=== PATIENT | male | born 1950 | race American Indian/Alaskan Native ===

== ENCOUNTER 2018-09-09 11:30 | Emergency (ER) | payer SELFPAY ==
[2018-09-09 11:33] VITALS: RESP 18; O2SAT 100
[2018-09-09 12:46] LABS: BASO # 0.1 K/uL (0.0-0.2); BASO % 0.7 % (0.0-2.0); EOS % 0.2 % (0.0-4.0); HEMOGLOBIN 13.5 g/dL (12.0-18.0); LYMPH # 2.3 K/uL (1.0-4.3); LYMPH % 17.6 % (20.0-40.0); MEAN CELL VOLUME 82.1 fL (80.0-94.0); MEAN CORPUSCULAR HEMOGLOBIN 26.4 pg (27.0-31.0); MEAN CORPUSCULAR HGB CONC 32.1 g/dL (33.0-37.0); MEAN PLATELET VOLUME 8.6 fL (7.2-11.7); MONO # 1.4 K/uL (0.0-0.8); MONO % 10.6 % (0.0-10.0); NEUT # 9.3 K/uL (1.8-7.0); NEUT % 70.9 % (50.0-75.0); RBC 5.11 Mil/uL (4.40-5.90); RED CELL DISTRIBUTION WIDTH 13.7 % (11.5-14.5); WHITE BLOOD COUNT 13.1 K/uL (4.8-10.8)
[2018-09-09 13:01] LABS: ALBUMIN 4.4 g/dL (3.5-5.0); ALT/SGPT 17 U/L (21-72); AST/SGOT 39 U/L (17-59); BLOOD UREA NITROGEN 18 mg/dL (9-20); CALCIUM 9.7 mg/dl (8.6-10.4); GFR NON-AFRICAN AMERICAN > 60
--- NOTE | 2018-09-09 13:56 | C.PDOC ---
History Of Present Illness 68 year old male is brought to the ED by son for evaluation of dizziness, decreased appetite, nausea and increased urinary urgency which began a couple days ago. Patient states his dizziness lasts for a few minutes and then self-resolves. Son states that patient has been visiting from [place], and is staying here for a couple months. Patient reports feeling acid reflux, and found relief after taking some [place]. Patient states he is asymptomatic at this time and denies fever, chills, abdominal pain, vomiting, recent trauma/falls. Time Seen by Provider: 09/09/18 12:00 Chief Complaint (Nursing): Dizziness/Lightheaded History Per: Patient, Family (son ) History/Exam Limitations: no limitations Current Symptoms Are (Timing): Gone Past Medical History Reviewed: Historical Data, Nursing Documentation, Vital Signs Vital Signs: Last Vital Signs Temp 99.2 F 09/09/18 11:32 Pulse 116 H 09/09/18 11:32 Resp 18 09/09/18 11:32 BP 182/104 H 09/09/18 11:32 Pulse Ox 100 09/09/18 11:32 - Medical History PMH: No Chronic Diseases Surgical History: No Surg Hx Family History: States: Unknown Family Hx - Social History Hx Alcohol Use: No Hx Substance Use: No - Immunization History Hx Tetanus Toxoid Vaccination: No Hx Influenza Vaccination: No Hx Pneumococcal Vaccination: No Review Of Systems Constitutional: Positive for: Other (decreased appetite ). Negative for: Fever, Chills Gastrointestinal: Positive for: Nausea. Negative for: Vomiting, Abdominal Pain Genitourinary: Positive for: Other (urinary urgency ) Neurological: Positive for: Dizziness Physical Exam - Physical Exam Appears: Well, Non-toxic, No Acute Distress Skin: Normal Color, Warm, Dry, No Rash Head: Atraumatic, Normacephalic Eye(s): bilateral: PERRL, EOMI Oral Mucosa: Moist Neck: Supple Chest: Symmetrical, No Deformity, No Tenderness Cardiovascular: Rhythm Regular, No Murmur Respiratory: Normal Breath Sounds, No Rales, No Rhonchi, No Wheezing Gastrointestinal/Abdominal: Soft, No Tenderness, No Guarding, No Rebound Back: Normal Inspection, No CVA Tenderness Extremity: Normal ROM, Capillary Refill (less than 2 seconds ), No Swelling Neurological/Psych: Oriented x3, Normal Speech, Normal Cognition Gait: Steady ED Course And Treatment - Laboratory Results Result Diagrams: 09/09/18 12:43 09/09/18 12:43 Lab Results: Total Bilirubin 0.5 mg/dL (0.2-1.3) 09/09/18 12:43 AST 39 U/L (17-59) 09/09/18 12:43 ALT 17 U/L (21-72) L 09/09/18 12:43 Alkaline Phosphatase 87 U/L (38-126) 09/09/18 12:43 Total Protein 9.1 g/dL (6.3-8.3) H 09/09/18 12:43 Albumin 4.4 g/dL (3.5-5.0) 09/09/18 12:43 Globulin 4.6 gm/dL (2.2-3.9) H 09/09/18 12:43 Albumin/Globulin Ratio 1.0 (1.0-2.1) 09/09/18 12:43 O2 Sat by Pulse Oximetry: 100 (on RA) Pulse Ox Interpretation: Normal Medical Decision Making Medical Decision Making: Progress: Bloodwork, urinalysis, CXR, EKG ordered and reviewed. Ciprofloxacin PO given. Patient was instructed that his BP was elevated and that he needs to be placed on medications for that. UA (+) for UTI. On re-exam, the patient reports improvement of symptoms. Lungs are CTA, heart is RRR, abdomen is soft, non-tender and tolerating Po well. Follow up with the medical doctor within 1-2 days. Return if worsened. Disposition - Disposition Disposition: HOME/ ROUTINE Disposition Time: 15:00 Condition: GOOD Additional Instructions: Follow up with the medical doctor within 1-2 days. Return if worsened. Prescriptions: Ciprofloxacin [Cipro] 1 tab PO BID #14 tab Meclizine HCl 25 mg PO TID PRN #25 tablet PRN Reason: Dizziness Tamsulosin [Flomax] 0.4 mg PO DAILY #10 cap Instructions: Urinary Tract Infections in Adults, Vertigo (a Type of Dizziness) (DC) Forms: [employer] (Maltese) - Clinical Impression Clinical Impression: UTI (urinary tract infection), Hypertension - PA / PRETZEL TWISTER / Resident Statement MD/DO has reviewed & agrees with the documentation as recorded. - Scribe Statement The provider has reviewed the documentation as recorded by the Scribe (Mariya Garcia) All medical record entries made by the Esequiel were at my direction and p ersonally dictated by me. I have reviewed the chart and agree that the record accurately reflects my personal performance of the history, physical exam, medical decision making, and the department course for this patient. I have also personally directed, reviewed, and agree with the discharge instructions and disposition.
[2018-09-09 14:02] LABS: SQUAMOUS EPITHIAL 1 /hpf (0-5); URINE BACTERIA MANY (<OCC); URINE BILIRUBIN NEGATIVE (NEGATIVE); URINE BLOOD 3+ (NEGATIVE); URINE CLARITY Turbid (Clear); URINE COLOR Amber (YELLOW); URINE GLUCOSE (UA) NORMAL (Normal); URINE LEUKOCYTE ESTERASE 3+ Leu/uL (Negative); URINE PROTEIN 1+ mg/dL (NEGATIVE); URINE UROBILINOGEN NORMAL mg/dL (0.2-1.0); WBC CLUMPS FEW /hpf
[2018-09-09 14:36] VITALS: BP 175/102; PULSE 108; TEMP 99.6
--- NOTE | 2018-09-09 14:36 | RAD ---
Date of service: 09/09/2018 HISTORY: Dizziness COMPARISON: No prior. FINDINGS: LUNGS: The lungs are well inflated and clear. PLEURA: No pleural effusions or pneumothorax. CARDIOVASCULAR: The heart is normal in size. No aortic atherosclerotic calcifications present. OSSEOUS STRUCTURES: Within normal limits for the patient's age. VISUALIZED UPPER ABDOMEN: Normal. OTHER FINDINGS: None. IMPRESSION: No active pulmonary disease.
--- NOTE | 2018-09-10 16:40 | CARD ---
APPROVED REPORT Date of service: 09/09/2018 EKG Measurement Heart [id number] <Conclusion> Sinus tachycardia Right bundle branch block Left anterior fascicular block Bifascicular block Septal infarct, age undetermined Abnormal ECG
== END 2018-09-09 14:56 | disposition home or self-care (01) ==
LOC: C.ER 11:30
DX: N39.0 Urinary tract infection, site not specified (principal); I10 Essential (primary) hypertension

== ENCOUNTER 2018-10-14 14:37 | Emergency (ER) | payer SELFPAY ==
[2018-10-14 15:38] LABS: BASO # 0.1 K/uL (0.0-0.2); BASO % 0.8 % (0.0-2.0); EOS % 0.5 % (0.0-4.0); HEMOGLOBIN 14.5 g/dL (12.0-18.0); LYMPH # 1.9 K/uL (1.0-4.3); LYMPH % 18.6 % (20.0-40.0); MEAN CELL VOLUME 81.2 fL (80.0-94.0); MEAN CORPUSCULAR HEMOGLOBIN 25.8 pg (27.0-31.0); MEAN CORPUSCULAR HGB CONC 31.8 g/dL (33.0-37.0); MEAN PLATELET VOLUME 8.3 fL (7.2-11.7); MONO % 9.9 % (0.0-10.0); NEUT # 7.2 K/uL (1.8-7.0); NEUT % 70.2 % (50.0-75.0); RBC 5.61 Mil/uL (4.40-5.90); RED CELL DISTRIBUTION WIDTH 14.8 % (11.5-14.5); WHITE BLOOD COUNT 10.3 K/uL (4.8-10.8)
[2018-10-14 15:49] LABS: INR 1.2; PROTHROMBIN TIME 12.7 SECONDS (9.7-12.2)
--- NOTE | 2018-10-14 16:15 | C.PDOC ---
History Of Present Illness 68 year old male with his son presents to ED with complaint of minimal blood in urine for the past day. Patient denies pain with urination. He denies dysuria and abdominal pain. Time Seen by Provider: 10/14/18 14:56 Chief Complaint (Nursing): Male Genitourinary History Per: Patient History/Exam Limitations: no limitations Onset/Duration Of Symptoms: Days (1) Current Symptoms Are (Timing): Still Present Quality Of Discomfort: denies: "Pain" Associated Symptoms: Urinary Symptoms (blood in urine). denies: Other (dysuria, abdominal pain) Past Medical History Reviewed: Historical Data, Nursing Documentation, Vital Signs Vital Signs: Last Vital Signs Temp 99.1 F 10/14/18 14:47 Pulse 114 H 10/14/18 14:47 Resp 17 10/14/18 14:47 BP 187/106 H 10/14/18 14:47 Pulse Ox 98 10/14/18 14:47 - Medical History PMH: HTN Surgical History: No Surg Hx Family History: States: Unknown Family Hx - Social History Hx Alcohol Use: No Hx Substance Use: No - Immunization History Hx Tetanus Toxoid Vaccination: No Hx Influenza Vaccination: No Hx Pneumococcal Vaccination: No Review Of Systems Except As Marked, All Systems Reviewed And Found Negative. Gastrointestinal: Negative for: Abdominal Pain Genitourinary: Positive for: Hematuria. Negative for: Dysuria Physical Exam - Physical Exam Appears: Well, Non-toxic, No Acute Distress Skin: Normal Color, Warm, Dry Head: Atraumatic, Normacephalic Eye(s): bilateral: Normal Inspection, PERRL, EOMI Nose: Normal Oral Mucosa: Moist Chest: Symmetrical Cardiovascular: Rhythm Regular, No Murmur Respiratory: Normal Breath Sounds, No Rales, No Rhonchi, No Wheezing Gastrointestinal/Abdominal: Normal Exam, Soft, No Tenderness Extremity: Bilateral: Atraumatic, Normal Color And Temperature, Normal ROM Neurological/Psych: Oriented x3, Normal Speech, Normal Cognition ED Course And Treatment - Laboratory Results Result Diagrams: 10/14/18 15:29 10/14/18 16:30 Lab Results: PT 12.7 SECONDS (9.7-12.2) H 10/14/18 15:29 INR 1.2 10/14/18 15:29 APTT 32 SECONDS (21-34) 10/14/18 15:29 O2 Sat by Pulse Oximetry: 98 (in RA) Medical Decision Making Medical Decision Making: Assessment: Hematuria Plan: Labs ordered with CMP, urine culture, and UA Diagnosis: UTI Patient discharged home. Disposition Counseled Patient/Family Regarding: Studies Performed, Diagnosis, Need For Followup, Rx Given - Disposition Referrals: [facility] [Outside] Disposition: HOME/ ROUTINE Disposition Time: 17:01 Condition: STABLE Additional Instructions: follow up with medical clinic within 2 days call to make an appointment take medication as prescribed return to ER if symptoms worsens or progress Prescriptions: Ciprofloxacin HCl [Cipro] 500 mg PO BID #20 tablet Instructions: Urinary Tract Infection, Adult (DC) Forms: [employer] (Italian), General Discharge Instructions - Clinical Impression Clinical Impression: UTI (urinary tract infection) - Scribe Statement The provider has reviewed the documentation as recorded by the Scribe (Pricila Pan) All medical record entries made by the Scribe were at my direction and personally dictated by me. I have reviewed the chart and agree that the record accurately reflects my personal performance of the history, physical exam, me dical decision making, and the department course for this patient. I have also personally directed, reviewed, and agree with the discharge instructions and disposition.
[2018-10-14 16:26] LABS: URINE BACTERIA FEW (<OCC); URINE BILIRUBIN NEGATIVE (NEGATIVE); URINE BLOOD 3+ (NEGATIVE); URINE COLOR Yellow (YELLOW); URINE GLUCOSE (UA) NORMAL (Normal); URINE LEUKOCYTE ESTERASE 3+ Leu/uL (Negative); URINE PROTEIN 1+ mg/dL (NEGATIVE); URINE UROBILINOGEN NORMAL mg/dL (0.2-1.0); WBC CLUMPS MANY /hpf
[2018-10-14 16:30] LABS: URINE CLARITY SLIGHT-CLOUDY (Clear)
[2018-10-14 16:38] VITALS: BP 177/86; PULSE 106; RESP 18; TEMP 98.4
[2018-10-14 16:55] LABS: ALB/GLOB RATIO 1.1 (1.0-2.1); ALBUMIN 4.4 g/dL (3.5-5.0); ALT/SGPT 19 U/L (21-72); AST/SGOT 33 U/L (17-59); BLOOD UREA NITROGEN 18 mg/dL (9-20); CALCIUM 9.9 mg/dl (8.6-10.4); GFR NON-AFRICAN AMERICAN 55
[2018-10-14 17:03] VITALS: O2SAT 98
== END 2018-10-14 17:15 | disposition home or self-care (01) ==
LOC: C.ER 14:37
DX: N39.0 Urinary tract infection, site not specified (principal); I10 Essential (primary) hypertension